=== PATIENT | female | born 1985 | race Caucasian/White ===

== ENCOUNTER 2016-09-29 16:34 | Emergency (ER) | payer SELFPAY ==
[~2016-09-29] VITALS: Ht 170.2 cm; Wt 125.0 kg
[~2016-09-29 16:34] MED LIST: AMOXICILLIN500 MG PO; MUCINEX600 MG PO; TESSALON PER100 MG PO; TESSALON PERLE100 MG PO; ULTRAM50 M1 PO; ZITHROMAX250 MG PO; ZPAK PO
[2016-09-29] MEDS ORDERED: PREDNISONE10 MG PO (16:59)
[2016-09-29] MEDS ORDERED: LORTAB 5-325 MG1 TAB PO (16:59)
[2016-09-29] MEDS ORDERED: FLEXERIL PO (16:59)
[2016-09-29 17:13] VITALS: BP 149/84
== END 2016-09-29 17:13 | disposition home or self-care (01) | DRG 552 ==
LOC: ED 16:34
DX: M54.5 Low back pain (principal); X50.0XXA Overexertion from strenuous movement or load, initial encounter; Y93.F2 Activity, caregiving, lifting; Y92.009 Unspecified place in unspecified non-institutional (private) residence as the place of occurrence of the external cause

== ENCOUNTER 2016-11-09 22:56 | Emergency (ER) | payer SELFPAY ==
[~2016-11-09] VITALS: Ht 170.2 cm; Wt 128.5 kg
[~2016-11-09 22:56] MED LIST changes: +FLEXERIL PO; +LORTAB 5-325 MG1 TAB PO; +PREDNISONE10 MG PO
[2016-11-09] MEDS ORDERED: FIORICET PO (23:59)
[2016-11-10 00:45] VITALS: BP 141/71
== END 2016-11-10 00:48 | disposition home or self-care (01) | DRG 103 ==
LOC: ED 22:56
DX: R51 Headache (principal); I10 Essential (primary) hypertension; J45.909 Unspecified asthma, uncomplicated

== ENCOUNTER 2017-05-13 00:43 | Emergency (ER) | payer SELFPAY ==
[~2017-05-13] VITALS: Ht 170.2 cm; Wt 123.8 kg
[~2017-05-13 00:43] MED LIST changes: +FIORICET PO
[2017-05-13] MEDS ORDERED: BP MED (00:51)
[2017-05-13] MEDS ORDERED: PRINIVIL5 MG PO (00:51)
[2017-05-13] MEDS ORDERED: METFORMIN500 M2 PO (00:52)
[2017-05-13 01:15] LABS: INFLUENZA A POSITIVE (NONE DETECT); INFLUENZA B NONE DETECTED (NONE DETECT)
[2017-05-13] MEDS ORDERED: TAM75CAP PO (01:28)
[2017-05-13] MEDS ORDERED: ROBITUSSIN AC10 ML PO (01:29)
[2017-05-13 01:46] VITALS: BP 152/100
== END 2017-05-13 01:46 | disposition home or self-care (01) | DRG 153 ==
LOC: ED 00:43
PROVIDERS: Emergency Medicine
DX: J11.1 Influenza due to unidentified influenza virus with other respiratory manifestations (principal); F17.210 Nicotine dependence, cigarettes, uncomplicated; R05 Cough; M79.1 Myalgia